=== PATIENT | female | born 2000 | race African-American/Black ===

== ENCOUNTER 2019-06-03 12:07 | Emergency (ER) | payer OTHER ==
[~2019-06-03] VITALS: Ht 162.6 cm; Wt 54.2 kg
[2019-06-03 19:00] VITALS: BP 99/56
== END 2019-06-03 20:38 ==
LOC: ED 12:31
DX: R53.83 Other fatigue (principal); T54.91XA Toxic effect of unspecified corrosive substance, accidental (unintentional), initial encounter; Y92.89 Other specified places as the place of occurrence of the external cause
CPT/HCPCS: 36415; 80048; 80053; 80307; 84703; 85025; 93005; 99285

== ENCOUNTER 2019-06-03 19:16 | Inpatient (IN) | payer OTHER ==
[~2019-06-03] VITALS: Ht 165.1 cm; Wt 53.5 kg
[2019-06-06 07:15] VITALS: BP 103/62
== END 2019-06-06 17:20 | disposition home or self-care (01) | DRG 881 ==
LOC: 3E 19:26
PROVIDERS: ADMIT Psychiatry & Neurology Psychosomatic Medicine; ATTEND Psychiatry & Neurology Psychosomatic Medicine
DX: F32.9 Major depressive disorder, single episode, unspecified (principal); E83.51 Hypocalcemia; D72.819 Decreased white blood cell count, unspecified; F39 Unspecified mood [affective] disorder; F43.21 Adjustment disorder with depressed mood; T54.92XA Toxic effect of unspecified corrosive substance, intentional self-harm, initial encounter; T65.892A Toxic effect of other specified substances, intentional self-harm, initial encounter; Y92.89 Other specified places as the place of occurrence of the external cause
CPT/HCPCS: 36415; 71045; 80048; 80053; 80061; 80307; 81001; 82140; 82607; 83690; 84439; 84443; 84703; 85025; 86592; 87086; 93005; 99285